=== PATIENT | male | born 1985 | race Caucasian/White ===

== ENCOUNTER → 2016-12-12 | Outpatient (CLI) | payer OTHER ==
[~2016-12-12] MED LIST: FLEXERIL10 MG PO; IBUPROFEN800 MG PO; ULTRAM50 MG PO
== END | disposition disaster alternative care site (69) ==
LOC: GRAD 07:47
DX: M51.26 Other intervertebral disc displacement, lumbar region (principal); M54.40 Lumbago with sciatica, unspecified side; M51.16 Intervertebral disc disorders with radiculopathy, lumbar region

== ENCOUNTER → 2016-12-22 | Outpatient (CLI) | payer OTHER | END | disposition disaster alternative care site (69) | LOC: GOPD 12-19 → GRAD 13:28 → GOPD 13:28 | PROC: 3E0R33Z Introduction of Anti-inflammatory into Spinal Canal, Percutaneous Approach (ICD-10-PCS; principal; 2016-12-22) | PROC: 3E0R3BZ Introduction of Anesthetic Agent into Spinal Canal, Percutaneous Approach (ICD-10-PCS; 2016-12-22) | DX: M54.5 Low back pain (principal) | CPT/HCPCS: J1040 ==